=== PATIENT | male | born 1975 | race Two or more races ===

== ENCOUNTER 2020-11-04 09:27 | Outpatient (CLI) | payer OTHER | END 2020-11-04 11:00 | disposition home or self-care (01) | LOC: ASH CLINIC 09:27 | PROVIDERS: ATTEND General Practice | DX: Z23 Encounter for immunization (principal); U07.1 COVID-19 ==

== ENCOUNTER 2021-09-22 05:42 | Emergency (ER) | payer OTHER ==
[~2021-09-22] VITALS: Ht 172.7 cm; Wt 79.4 kg
[2021-09-22] MEDS ORDERED: TRUVADA 100 MG1 EACH (05:50)
[2021-09-22] MEDS ORDERED: TORADOL (17:47)
[2021-09-23] MEDS ORDERED: TRUVADA 200 MG1 EACH (07:56)
[2021-09-23] MEDS ORDERED: KETO10TA2 (07:56)
== END 2021-09-22 09:52 | disposition home or self-care (01) ==
LOC: ER 05:42
DX: K52.9 Noninfective gastroenteritis and colitis, unspecified (principal); R10.9 Unspecified abdominal pain; Z88.8 Allergy status to other drugs, medicaments and biological substances

== ENCOUNTER 2021-09-22 17:17 | Inpatient (IN) | payer OTHER ==
[~2021-09-22] VITALS: Ht 172.7 cm; Wt 79.4 kg
[~2021-09-22 17:17] MED LIST: TRUVADA 100 MG1 EACH
[2021-09-22] MEDS ORDERED: TORADOL (17:47)
[2021-09-23] MEDS ORDERED: KETO10TA2 (07:56)
[2021-09-23] MEDS ORDERED: TRUVADA 200 MG1 EACH (07:56)
== END 2021-09-24 19:24 | disposition home or self-care (01) | DRG 343 ==
LOC: ER 17:17 → SEC-K 21:11 → O/R 21:11 → SURG 09-23 11:57
PROVIDERS: ADMIT Internal Medicine; ATTEND Internal Medicine
PROC: 0DTJ4ZZ Resection of Appendix, Percutaneous Endoscopic Approach (ICD-10-PCS; principal; 2021-09-23)
DX: K35.890 Other acute appendicitis without perforation or gangrene (principal); R10.31 Right lower quadrant pain; Z20.822 Contact with and (suspected) exposure to COVID-19

== ENCOUNTER 2024-04-14 09:56 | Emergency (ER) | payer OTHER ==
[~2024-04-14] VITALS: Ht 172.7 cm; Wt 75.7 kg
[~2024-04-14 09:56] MED LIST changes: +KETO10TA2; +TORADOL; +TRUVADA 200 MG1 EACH
[2024-04-14 10:08] VITALS: BP 120/83; O2SAT 96
[2024-04-14] MEDS ORDERED: GUAIFENESIN/DEXTROMETHORPHAN 10ML BLIST.PACK PO ONE ×2 (10:15)
[2024-04-14] MEDS ORDERED: DEXAMETHASONE SODIUM PHOSPHATE 4 MG/ML VIAL IM ONE (10:15)
[2024-04-14] MEDS ORDERED: DEXAMETHASONE SODIUM PHOSPHATE 4 MG/ML VIAL ONE (10:15)
[2024-04-14 10:34] LABS: HEMATOCRIT 39.6 % (39.0-48.0); HEMOGLOBIN 13.8 g/dL (13-16.00); MEAN CELL VOLUME 94.3 fL (80.0-100.00); MEAN CORPUSCULAR HEMOGLOBIN 32.9 pg (27.00-32.0); MEAN CORPUSCULAR HGB CONC 34.9 g/dl (32.0-36.0); PLATELET COUNT 222 K/uL (150-450); RED BLOOD COUNT 4.21 M/uL (4.00-6.00); RED CELL DISTRIBUTION WIDTH 12.9 % (11.5-14.5)
[2024-04-14] MEDS ORDERED: OSEL75CA PO (11:03)
[2024-04-14] MEDS ORDERED: TUSNEL LIQUID178 ML PO (11:03)
[2024-04-14] MEDS ORDERED: OSELTAMIVIR PHOSPHATE 75 MG CAPSULE PO ONE ×2 (11:04→11:15)
== END 2024-04-14 11:06 | disposition home or self-care (01) ==
LOC: ER 09:59
PROVIDERS: General Practice
DX: B34.9 Viral infection, unspecified (principal); J10.1 Influenza due to other identified influenza virus with other respiratory manifestations; R53.81 Other malaise; Z20.822 Contact with and (suspected) exposure to COVID-19; Z91.041 Radiographic dye allergy status